=== PATIENT | male | born 1990 | race Caucasian/White ===

== ENCOUNTER 2017-05-10 16:15 | Emergency (ER) | payer SELFPAY ==
[~2017-05-10] VITALS: Ht 190.5 cm; Wt 99.8 kg
--- NOTE | ~2017-05-10 | EKG ---
PATIENT: MARIO HILTON UNIT #: [id number] Ventricular Rate: 54 BPM Atrial Rate: 54 BPM P-R Interval: 146 ms QRS Duration: 110 ms Q-T Interval: 446 ms QTC Calculation(Bezet): 422 ms P [place]: 17 degrees Calculated R [place]: 27 degrees Calculated T [place]: 27 degrees Diagnosis Line: Sinus bradycardia with sinus arrhythmia Diagnosis Line: with junctional escape beats Diagnosis Line: Borderline ECG Diagnosis Line: No previous ECGs available Diagnosis Line: Confirmed by PETRA CARTER MD ([id number]) on 05/12/2017 Diagnosis Line: 4:52:18 PM INTERPRETING MD: RAUL QUINTANILLA
[2017-05-10 17:35] LABS: URINE SOURCE CLEAN CATCH
[2017-05-10 17:37] LABS: BASOPHIL% 0.3 % (0-2.5); EOSINOPHIL# 0.3 X10e3 (0-0.7); EOSINOPHIL% 3.2 % (0.0-7.0); HEMATOCRIT 46.8 % (38.0-50.0); HEMOGLOBIN 15.8 gm/dL (13.0-16.0); LYMPHOCYTE# 3.6 X10e3 (1.0-3.5); LYMPHOCYTE% 43.8 % (17.0-45.0); MEAN CELL VOLUME 93.7 FL (83-96); MEAN CORPUSCULAR HEMOGLOBIN 31.6 PG (28-34); MEAN CORPUSCULAR HGB CONC 33.7 g/dL (30-36); MEAN PLATELET VOLUME 8.1 FL (6.5-11.5); MONOCYTE# 0.5 X10e3 (0-1.0); MONOCYTE% 6.2 % (3.0-12.0); NEUTROPHIL# 3.8 X10e3 (1.5-7.1); NEUTROPHIL% 46.5 % (40-75); PLATELET COUNT 220 X10e3 (140-420); RED BLOOD COUNT 4.99 X10e (3.90-5.60); WHITE BLOOD COUNT 8.2 X10e3 (4.0-10.5)
[2017-05-10 17:39] LABS: DIFF IND NO
[2017-05-10 17:42] LABS: URINE APPEARANCE CLEAR; URINE BILIRUBIN NEG (NEG); URINE BLOOD NEG (NEG); URINE COLOR YELLOW; URINE GLUCOSE NEG (NEG); URINE KETONE NEG (NEG); URINE LEUKOCYTE ESTERASE NEG (NEG); URINE NITRATE NEG (NEG); URINE PROTEIN NEG (NEG); URINE SPECIFIC GRAVITY 1.018 (1.003-1.035)
[2017-05-10 17:51] LABS: CULTURE INDICATED? NO
[2017-05-10 17:57] LABS: ALBUMIN SERUM 4.3 g/dL (3.5-5.0); BILIRUBIN, DIRECT 0.1 mg/dL (0.0-0.2); BILIRUBIN,INDIRECT 0.4 mg/dL (0.0-0.9); BILIRUBIN,TOTAL 0.5 mg/dL (0.2-2.0); BUN/CREATININE RATIO 15.71; CALCIUM SERUM 9.2 mg/dL (8.4-10.2); CREATININE SERUM 0.7 mg/dL (0.6-1.4); GLOM FILT RATE Estimated 131.2 mL/min (>60); POTASSIUM 4.2 mmol/L (3.5-5.1); PROTEIN TOTAL SERUM 7.4 g/dL (6.0-8.3)
== END 2017-05-10 21:04 | disposition home or self-care (01) ==
LOC: CED 16:15
DX: I95.1 Orthostatic hypotension (principal); E86.1 Hypovolemia; F41.9 Anxiety disorder, unspecified; F17.200 Nicotine dependence, unspecified, uncomplicated; Z91.040 Latex allergy status
CPT/HCPCS: 36415; 80048; 80076; 81003; 85025; 93005; 99284